=== PATIENT | male | born 1955 | race Caucasian/White ===

== ENCOUNTER → 2018-01-06 14:40 | Outpatient (CLI) | payer BC, SELFPAY ==
[2018-01-06 16:05] LABS: Hemoglobin A1c 11.3 % (4.2-6.3)
== END ==
PROVIDERS: Visit Provider Psychiatry & Neurology Neurology
DX: E11.40 Type 2 diabetes mellitus with diabetic neuropathy, unspecified (principal)
CPT/HCPCS: 36415; 83036

== ENCOUNTER → 2018-03-25 15:26 | Outpatient (CLI) | payer BC, SELFPAY ==
--- NOTE | 2018-03-25 15:34 | MRI_ITS ---
STUDY: MRI LUMBAR SPINE WITH AND WITHOUT CONTRAST REASON FOR EXAM: Male, 62 years old. TECHNIQUE: Standardized fat and water weighted pulse sequences were obtained in the sagittal and axial planes. 8 ml of Gadavist contrast material was administered for the contrast portion of the examination. COMPARISON: None FINDINGS: T12-L1: Normal endplates. Normal disc height, hydration and morphology. Normal bilateral facet joints. Normal central canal and bilateral lateral recesses. Normal bilateral intervertebral neural foramina. Normal lumbar lordosis. There is no substantial scoliosis. Normal conus medullaris that terminates at the L1 level. L1-2: Normal endplates. Normal disc height, hydration and morphology. Normal bilateral facet joints. Normal central canal and bilateral lateral recesses. Normal bilateral intervertebral neural foramina. L2-3: Normal endplates. Normal disc height, hydration and morphology. Normal bilateral facet joints. Normal central canal and bilateral lateral recesses. Normal bilateral intervertebral neural foramina. L3-4: Bulging annulus and bilateral facet hypertrophy with mild bilateral foraminal stenoses. L4-5: Bulging annulus with superimposed broad central and right subarticular disc protrusion and bilateral facet hypertrophy. Disc material deflects the transiting right L5 nerve root. Mild right foraminal stenosis. L5-S1: Disc space narrowing and desiccation with discogenic endplate changes and anterior osteophytes. Central disc protrusion with contact of the transiting right S1 nerve root. Moderate bilateral foraminal stenoses. Normal visualized sacral ala. Normal visualized paraspinous soft tissue structures. MRI/Spine Lumbar W/WO Contrast IMPRESSION: Multilevel degenerative disease as described. Disc protrusion at L4-5 with deflection of the transiting right L5 nerve root. Disc protrusion at L5-S1 with contact of the transiting right S1 nerve root. Electronically Signed: Rah Phillips MD at 9:18 EST Tel , Service support ,
[2018-03-25 16:11] LABS: CREATININE FINGERSTICK 1.1 mg/dL (0.70-1.30); EGFR FINGERSTICK > 60.0000 mL/min (>60)
== END ==
PROVIDERS: PCP Internal Medicine; Referring Provider Internal Medicine; Visit Provider Nurse Practitioner Acute Care
DX: R20.0 Anesthesia of skin (principal); R20.2 Paresthesia of skin
CPT/HCPCS: 72158; A9585

== ENCOUNTER → 2018-06-28 16:44 | Outpatient (CLI) | payer BC, SELFPAY ==
[2018-06-28 16:02] VITALS: BMI 27.3
[2018-06-28 17:42] LABS: Hemoglobin A1c 6.9 % (4.2-6.3)
[2018-06-28 17:47] LABS: Microalbumin,Random Urine 8.5 mg/L (NO RANGE EST.); Microalbumin:Creatinine Ratio 11.9 mg/g CRE (<30 mg/g CRE)
[2018-06-28 17:49] LABS: ALB/GLOB Ratio 1.2 RATIO (0.9-2.4); AST(SGOT) 23 U/L (15-37); Alanine Aminotransfer ALT/SGPT 32 U/L (16-61); Albumin, Serum 3.8 g/dL (3.2-5.0); Alkaline Phosphatase 67 U/L (45-117); Anion Gap 9 (5-15); BUN 18 mg/dL (7-18); BUN/Creat Ratio 16.8 RATIO (10-20); Calcium,Total 9.3 mg/dL (8.5-10.1); Chloride 104 mmol/L (98-107); Cholesterol 201 mg/dL (200); Creatinine, Serum 1.07 mg/dL (0.70-1.30); EST Glomerular Filtration Rate 74 mL/min (>60); Est Glom Filt Rate - Afr Amer 90 mL/min (>60); Globulin 3.2 g/dL (2.2-4.2); Glucose 132 mg/dL (74-106); High Density Lipoprotein 45 mg/dL; Potassium 4.4 mmol/L (3.5-5.1); Sodium Level 141 mmol/L (136-145); Triglycerides 163 mg/dL; Very Low Density Lipoprotein 33 mg/dL (5-40)
== END ==
PROVIDERS: Referring Provider Nurse Practitioner; Visit Provider Nurse Practitioner
DX: E11.65 Type 2 diabetes mellitus with hyperglycemia (principal)
CPT/HCPCS: 36415; 80053; 80061; 82043; 82570; 83036